=== PATIENT | male | born 1965 | race Caucasian/White ===

== ENCOUNTER 2017-09-05 12:19 | Emergency (ER) | payer BC ==
--- NOTE | 2017-09-05 14:00 | ER Document Report ---
ED Cardiac - General Mode of Arrival: Ambulatory Information source: Patient TRAVEL OUTSIDE OF THE [place] IN LAST 30 DAYS: Yes - Patrice <YARY RENAE - Last Filed: 09/05/17 14:07> <JENNIFER MENDOZA - Last Filed: 09/05/17 16:41> - General Chief Complaint: Palpitations Stated Complaint: HEART RATE ISSUES Time Seen by Provider: 09/05/17 13:25 Notes: Patient is a 52-year-old male who presents to the emergency department today with complaints of heart palpitations. Patient states that he began feeling these palpitations at about 2330 last evening. Patient has a history of atrial fibrillation. Patient mentions that he has a "link" in his chest and has a "pill in the pocket" approach with flecainide according to a note brought with him from his doctor. Patient denies any chest pain. (YARY RENAE) The patient has a loop monitor in his left chest wall that was seen on chest x- ray. The behavioral science chair for this was with the [facility], he is now changed to seeing a Dr. Mckeon with [facility]. (JENNIFER MENDOZA) - Related Data Allergies/Adverse Reactions: Penicillins Allergy (Verified 09/05/17 12:23) Past Medical History - General Information source: Patient - Social History Smoking Status: Never Smoker Cigarette use (# per day): No Frequency of alcohol use: None Drug Abuse: None Lives with: Family Family History: Reviewed & Not Pertinent - Past Medical History Cardiac Medical History: Reports: Hx Atrial Fibrillation, Hx Hypercholesterolemia GI Medical History: Reports: Hx Gastroesophageal Reflux Disease Past Surgical History: Reports: Hx Tonsillectomy <YARY RENAE - Last Filed: 09/05/17 14:07> Review of Systems - Review of Systems Constitutional: No symptoms reported EENT: No symptoms reported Cardiovascular: See HPI, Palpitations, Heart racing. denies: Chest pain Respiratory: No symptoms reported Gastrointestinal: No symptoms reported Genitourinary: No symptoms reported Male Genitourinary: No symptoms reported Musculoskeletal: No symptoms reported Skin: No symptoms reported Hematologic/Lymphatic: No symptoms reported Neurological/Psychological: No symptoms reported -: Yes All other systems reviewed and negative <YARY RENAE - Last Filed: 09/05/17 14:07> Physical Exam <YARY RENAE - Last Filed: 09/05/17 14:07> <JENNIFER MENDOZA - Last Filed: 09/05/17 16:41> - Vital signs Vitals: Temp Pulse Resp BP Pulse Ox 98.7 F 95 18 119/79 98 09/05/17 12:31 09/05/17 12:31 09/05/17 12:31 09/05/17 12:31 09/05/17 12:31 - Notes Notes: Physical Exam: General: Alert, appears well. HEENT: Normocephalic. Atraumatic. PERRL. Extraocular movements intact. Oropharynx clear. Neck: Supple. Non-tender. Respiratory: No respiratory distress. Clear and equal breath sounds bilaterally. Cardiovascular: Irregularly irregular, rate of 110-115. Abdominal: Normal Inspection. Non-tender. No distension. Normal Bowel Sounds. Back: Non-tender. No deformity or step off. Extremities: Moves all four extremities. Upper extremities: Normal inspection. Normal ROM. Lower extremities: Normal inspection. No edema. Normal ROM. Neurological: Normal cognition. AAOx4. Normal speech. Psychological: Normal affect. Normal Mood. Skin: Warm. Dry. Normal color. (YARY RENAE) Course - Laboratory Result Diagrams: 09/05/17 13:39 09/05/17 13:39 <YARY RENAE - Last Filed: 09/05/17 14:07> - Laboratory Result Diagrams: 09/05/17 13:39 09/05/17 13:39 - Diagnostic Test Radiology reviewed: Image reviewed, Reports reviewed - Chest x-ray does not show any acute process. It does show a loop recorder in the left anterior chest wall. - EKG Interpretation by [facility] EKG shows normal: Sinus rhythm, [place], Intervals, ST-T Waves. abnormal: QRS Complexes - Q's in leads III and F but not in lead II Rate: Tachycardia - 120 Rhythm: A.Fib - Consults Dr. Reveles Time consulted: 14:10 Consulted provider: other - Recommends giving 10 mg Cardizem IV, wait 30 minutes and give flecainide 50 mg and send him home on 50 mg twice daily. Given 1 dose of Lovenox based on weight, and start on aspirin. <JENNIFER MENODZA - Last Filed: 09/05/17 16:41> - Re-evaluation Re-evalutation: 09/05/17 16:36 After the Cardizem IV, the patient's ventricular rate slowed into the 60s. ( JENNIFER MENDOZA) - Vital Signs Vital signs: Temp Pulse Resp BP Pulse Ox 98.7 F 95 18 119/79 98 09/05/17 12:31 09/05/17 12:31 09/05/17 13:30 09/05/17 12:31 09/05/17 13:30 - Laboratory Laboratory results interpreted by me: 09/05/17 09/05/17 13:39 13:39 RBC 6.80 H MCV 73 L MCH 24.3 L Creatine Kinase 175 H Discharge <YARY RENAE - Last Filed: 09/05/17 14:07> <JENNIFER MENDOZA - Last Filed: 09/05/17 16:41> - Discharge Clinical Impression: Atrial fibrillation with rapid ventricular response Condition: Stable Disposition: HOME, SELF-CARE Additional Instructions: Take the flecainide as prescribed. Take one baby aspirin daily, you have had today's dose already. Follow-up with your behavioral science chair next week. RETURN TO THE EMERGENCY ROOM IF ANY NEW OR WORSENING SYMPTOMS. Prescriptions: Flecanide 50 mg PO BID #30 Referrals: ZAY GONZALEZ MD [Primary Care Provider] - Follow up as needed Scribe Attestation: 09/05/17 16:40 I personally performed the services described in the documentation, reviewed and edited the documentation which was dictated to the scribe in my presence, and it accurately records my words and actions. (JENNIFER MENDOZA) Scribe Documentation - Scribe Written by Merryibe:: Nayla Naylor, 09/05/2017 1411 acting as scribe for :: Hira <YARY RENAE - Last Filed: 09/05/17 14:07>
--- NOTE | 2017-09-05 14:02 | RADIOLOGY REPORT (SQ) ---
EXAM DESCRIPTION: CHEST SINGLE VIEW COMPLETED DATE/TIME: 09/05/2017 1:47 pm REASON FOR STUDY: palpitations COMPARISON: None. EXAM PARAMETERS: NUMBER OF VIEWS: One view. TECHNIQUE: Single frontal radiographic view of the chest acquired. RADIATION DOSE: NA LIMITATIONS: None. FINDINGS: LUNGS AND PLEURA: No opacities, masses or pneumothorax. No pleural effusion. MEDIASTINUM AND HILAR STRUCTURES: No masses. Contour normal. HEART AND VASCULAR STRUCTURES: Heart normal in size. Normal vasculature. BONES: No acute findings. HARDWARE: None in the chest. OTHER: No other significant finding. IMPRESSION: NO ACUTE RADIOGRAPHIC FINDING IN THE CHEST. TECHNICAL DOCUMENTATION: JOB ID: [id number] [employer]- All Rights Reserved
[2017-09-05 14:09] LABS: ABSOLUTE BASOPHILS # (AUTO) 0.1 10^3/uL (0.0-0.2); ABSOLUTE EOSINOPHILS # (AUTO) 0.2 10^3/uL (0.0-0.6); ABSOLUTE LYMPHOCYTES (AUTO) 2.2 10^3/uL (0.5-4.7); ABSOLUTE MONOCYTES (AUTO) 0.8 10^3/uL (0.1-1.4); BASOPHILS % (AUTO) 0.9 % (0-2); EOSINOPHILS % (AUTO) 1.8 % (0-6); HEMATOCRIT 49.5 % (37.9-51.0); HEMOGLOBIN 16.5 g/dL (13.5-17.0); LYMPHOCYTES % (AUTO) 23.8 % (13-45); MEAN CORPUSCULAR HEMOGLOBIN 24.3 pg (27.0-33.4); MEAN CORPUSCULAR HGB CONC 33.4 g/dL (32.0-36.0); MEAN CORPUSCULAR VOLUME 73 fl (80-97); MONOCYTES % (AUTO) 9.1 % (3-13); PLATELET COUNT 239 10^3/uL (150-450); SEGMENTED NEUTROPHILS % (AUTO) 64.4 % (42-78); TOTAL CELLS COUNTED % (AUTO) 100 %; WHITE BLOOD COUNT 9.3 10^3/uL (4.0-10.5)
[2017-09-05] MEDS ORDERED: NORMAL SALINE 1000 ML 1,000 ML IV ONE (14:10)
[2017-09-05] MEDS ORDERED: DILTIAZEM HCL INJ 25 MG/5 ML VIAL IV ONE (14:10)
[2017-09-05] MEDS ORDERED: ENOXAPARIN SODIUM INJ 100 MG/1 ML DISP.SYRIN SUBCUT ONE (14:15)
[2017-09-05] MEDS ORDERED: ASPIRIN 81 MG TABLET, CHEWABLE PO ONE (14:16)
[2017-09-05 14:29] LABS: ALANINE AMINOTRANSFERASE 48 U/L (21-72); ALBUMIN 4.3 g/dL (3.5-5.0); ALKALINE PHOSPHATASE 58 U/L (38-126); ANION GAP 12 (5-19); ASPARTATE AMINO TRANSFERASE 34 U/L (17-59); BILIRUBIN,DIRECT 0.3 mg/dL (0.0-0.4); BILIRUBIN,TOTAL 0.7 mg/dL (0.2-1.3); BLOOD UREA NITROGEN 16 mg/dL (7-20); CALCIUM 10.2 mg/dL (8.4-10.2); CARBON DIOXIDE 25 mmol/L (22-30); CHLORIDE 106 mmol/L (98-107); CREATINE KINASE 175 U/L (55-170); GLUCOSE 90 mg/dL (75-110); POTASSIUM 4.7 mmol/L (3.6-5.0); SODIUM 143.4 mmol/L (137-145); TOTAL PROTEIN 6.9 g/dL (6.3-8.2)
[2017-09-05 14:39] LABS: CREATINE KINASE MB 3.21 ng/mL (<4.55)
[2017-09-05 14:40] LABS: TROPONIN I < 0.012 ng/mL
[2017-09-05 14:45] LABS: FREE T3 3.96 pg/mL (2.77-5.27); FREE T4 (FREE THYROXINE) 1.03 ng/dL (0.78-2.19)
[2017-09-05 14:58] LABS: THYROID STIMULATING HORMONE 3.23 uIU/mL (0.47-4.68)
[2017-09-05] MEDS ORDERED: FLECAINIDE ACETATE 100 MG TABLET PO ONE (15:55)
[2017-09-05 16:58] VITALS: BP 118/96
--- NOTE | 2017-09-05 20:47 | EKG REPORT ---
SEVERITY:- ABNORMAL ECG - ATRIAL FIBRILLATION, V-RATE 59-94 PROBABLE INFERIOR INFARCT, AGE INDETERMINATE : Confirmed by: Parvez Connor MD 05-Sep-2017 20:47:02
--- NOTE | 2017-09-05 20:48 | EKG REPORT ---
SEVERITY:- ABNORMAL ECG - ATRIAL FIBRILLATION, V-RATE 79-169 PROBABLE INFERIOR INFARCT, OLD : Confirmed by: Parvez Connor MD 05-Sep-2017 20:47:44
--- NOTE | 2017-09-07 10:54 | EKG REPORT ---
SEVERITY:- ABNORMAL ECG - ATRIAL FIBRILLATION, V-RATE 49-70 PROBABLE INFERIOR INFARCT, AGE INDETERMINATE : Confirmed by: Rufina Reveles MD 07-Sep-2017 10:53:57
== END 2017-09-05 17:03 | disposition home or self-care (01) ==
LOC: ER 12:19
DX: I48.91 Unspecified atrial fibrillation (principal); R00.2 Palpitations; E78.00 Pure hypercholesterolemia, unspecified; Z88.0 Allergy status to penicillin
CPT/HCPCS: 93005; 99285; 96372; 96361; 96374; 36415; 84439; 82553; 82550; 84443; 85025; 80053; 84484; 84481; 71010; 93010; J3490 ×2; J7030; J1650

== ENCOUNTER → 2018-01-13 | Outpatient (CLI) | payer BC ==
--- NOTE | 2018-01-13 10:09 | WOMENS IMAGING REPORT ---
EXAM DESCRIPTION: BILAT DIAGNOSTIC MAMMO W/CAD; U/S BREAST UNILAT LIMITED COMPLETED DATE/TIME: 01/13/2018 8:45 am; 01/13/2018 9:44 am REASON FOR STUDY: AXILLARY MASS/SUBCUTANEOUS CALC; LEFT BREAST; L94.2 R22.30 LOCALIZED SWELLING, MA SS AND LUMP, UNSPECIFIED UPPER R59.0 LOCALIZED ENLARGED LYMPH NODES COMPARISON: None. TECHNIQUE: Standard craniocaudal,90 mediolateral and mediolateral oblique views of each breast dameon rded using digital acquisition. Left male breast ultrasound was also performed LIMITATIONS: None. FINDINGS: RIGHT BREAST MASSES: No suspicious masses. CALCIFICATIONS: No new or suspicious calcifications. ARCHITECTURAL DISTORTION: None. DEVELOPING DENSITY: None. ASYMMETRY: None noted. OTHER: No other significant findings. LEFT BREAST MASSES: No suspicious masses. CALCIFICATIONS: No new or suspicious calcifications. ARCHITECTURAL DISTORTION: None. DEVELOPING DENSITY: None. ASYMMETRY: None noted. OTHER: An implanted cardiac monitoring device is present over the lower inner quadrant left male daryl st Read with the assistance of CAD: .[facility] - R2 Cenova Version 1.3 .[facility] - R2 Cenova Version 1.3 .[facility] - R2 Cenova Version 2.4 .[facility] [place] R2 Cenova Version 2.4 .[facility] - R2 Marketing Writer Version 9.2 Left male breast ultrasound: Benign 9 mm intramammary lymph node left breast 1 to 2 o'clock position, 4 cm from the nipple IMPRESSION: No mammographic evidence for malignancy right male breast. No mammographic or sonographic evidence for malignancy left male breast BREAST DENSITY: a. The breasts are almost entirely fatty. BIRAD: 1 Negative. RECOMMENDATION: RECOMMENDED FOLLOW UP: Clinical follow-up recommended SPECIFIC INTERVENTION/IMAGING/CONSULTATION RECOMMENDED:No additional intervention/ imaging/consultati on needed at this time. COMMUNICATION:The negative/benign results were communicated to the patient. COMMENT: The patient has been notified of the results by letter per SA requirements. Additional no tification policies are in place for contacting patient with suspicious or incomplete findings. Quality ID #225: The [employer] recommends an annual screening mammogram for women aged 40 years or over. This facility utilizes a reminder system to ensure that all patients receive reminder letters, and/or direct phone calls for appointments. This includes reminders for routine scr eening mammograms, diagnostic mammograms, or other Breast Imaging Interventions when appropriate. Th is patient will be placed in the appropriate reminder system. The [employer] (ACR) has developed recommendations for screening MRI of the breast s in certain patient populations, to be used in conjunction with mammography. Breast MRI surveillanc e may be appropriate for women with more than 20% lifetime risk of developing breast cancer as deter mined by genetic testing, significant family history of the disease, or history of mantle radiation f or Hodgkins Disease. ACR Practice Guidelines 2008. TECHNICAL DOCUMENTATION: FINDING NUMBER: (1) ASSESSMENT: (1) JOB ID: [id number] [employer]- All Rights Reserved Reading location - IP/workstation name: [email or web address]
--- NOTE | 2018-01-13 10:09 | WOMENS IMAGING REPORT ---
EXAM DESCRIPTION: BILAT DIAGNOSTIC MAMMO W/CAD; U/S BREAST UNILAT LIMITED COMPLETED DATE/TIME: 01/13/2018 8:45 am; 01/13/2018 9:44 am REASON FOR STUDY: AXILLARY MASS/SUBCUTANEOUS CALC; LEFT BREAST; L94.2 R22.30 LOCALIZED SWELLING, MA SS AND LUMP, UNSPECIFIED UPPER R59.0 LOCALIZED ENLARGED LYMPH NODES COMPARISON: None. TECHNIQUE: Standard craniocaudal,90 mediolateral and mediolateral oblique views of each breast dameon rded using digital acquisition. Left male breast ultrasound was also performed LIMITATIONS: None. FINDINGS: RIGHT BREAST MASSES: No suspicious masses. CALCIFICATIONS: No new or suspicious calcifications. ARCHITECTURAL DISTORTION: None. DEVELOPING DENSITY: None. ASYMMETRY: None noted. OTHER: No other significant findings. LEFT BREAST MASSES: No suspicious masses. CALCIFICATIONS: No new or suspicious calcifications. ARCHITECTURAL DISTORTION: None. DEVELOPING DENSITY: None. ASYMMETRY: None noted. OTHER: An implanted cardiac monitoring device is present over the lower inner quadrant left male daryl st Read with the assistance of CAD: .[facility] - R2 Cenova Version 1.3 .[facility] - R2 Cenova Version 1.3 .[facility] - R2 Cenova Version 2.4 .[facility] [place] - R2 Cenova Version 2.4 .[facility]EDS AT [facility] - R2 Water Truck Driver Version 9.2 Left male breast ultrasound: Benign 9 mm intramammary lymph node left breast 1 to 2 o'clock position, 4 cm from the nipple IMPRESSION: No mammographic evidence for malignancy right male breast. No mammographic or sonographic evidence for malignancy left male breast BREAST DENSITY: a. The breasts are almost entirely fatty. BIRAD: 1 Negative. RECOMMENDATION: RECOMMENDED FOLLOW UP: Clinical follow-up recommended SPECIFIC INTERVENTION/IMAGING/CONSULTATION RECOMMENDED:No additional intervention/ imaging/consultati on needed at this time. COMMUNICATION:The negative/benign results were communicated to the patient. COMMENT: The patient has been notified of the results by letter per SA requirements. Additional no tification policies are in place for contacting patient with suspicious or incomplete findings. Quality ID #225: The [employer] [employer] recommends an annual screening mammogram for women aged 40 years or over. This facility utilizes a reminder system to ensure that all patients receive reminder letters, and/or direct phone calls for appointments. This includes reminders for routine scr eening mammograms, diagnostic mammograms, or other Breast Imaging Interventions when appropriate. Th is patient will be placed in the appropriate reminder system. The [place] [employer] (ACR) has developed recommendations for screening MRI of the breast s in certain patient populations, to be used in conjunction with mammography. Breast MRI surveillanc e may be appropriate for women with more than 20% lifetime risk of developing breast cancer as deter mined by genetic testing, significant family history of the disease, or history of mantle radiation f or Hodgkins Disease. ACR Practice Guidelines 2008. TECHNICAL DOCUMENTATION: FINDING NUMBER: (1) ASSESSMENT: (1) JOB ID: [id number] [employer]- All Rights Reserved Reading location - IP/workstation name: [facility]-[email or web address]
== END ==
LOC: WI 08:06
PROVIDERS: ATTEND Physician Assistant
DX: R59.0 Localized enlarged lymph nodes (principal); L94.2 Calcinosis cutis
CPT/HCPCS: 76642; 77066

== ENCOUNTER 2019-06-30 19:20 | Emergency (ER) | payer BC ==
[2019-06-30 19:53] VITALS: BP 121/74
[2019-06-30] MEDS ORDERED: ASPIRIN 81 MG TABLET, CHEWABLE PO ONE (20:29)
--- NOTE | 2019-06-30 20:29 | ER Document Report ---
ED Medical Screen (RME) - General Chief Complaint: Palpitations Stated Complaint: REPORTS HEART PALPITATIONS Time Seen by Provider: 06/30/19 20:27 Primary Care Provider: ZAY GONZALEZ MD [Primary Care Provider] - Follow up as needed Mode of Arrival: Ambulatory Information source: Patient Notes: 54-year-old male presented to ED for complaint of palpitations. He states he has a little chest discomfort but not really pain. States he has a history of A. fib and felt himself going into A. fib about 5:00 tonight. He is on flecainide, metoprolol, and 81 mg of aspirin. States that last time he has been in A. fib was September 05, 2017. Patient denies any shortness of breath or diaphoresis. He states he has been fatigued. Patient denies smoking drinking or using any illicit drugs. TRAVEL OUTSIDE OF THE [place] IN LAST 30 DAYS: No - Related Data Allergies/Adverse Reactions: Penicillins Allergy (Verified 09/05/17 12:23) Home Medications: metoprolol. flecinal Past Medical History - Social History Frequency of alcohol use: None Drug Abuse: None - Past Medical History Cardiac Medical History: Reports: Hx Atrial Fibrillation, Hx Hypercholesterolemia Renal/ Medical History: Denies: Hx Peritoneal Dialysis GI Medical History: Reports: Hx Gastroesophageal Reflux Disease Past Surgical History: Reports: Hx Tonsillectomy Physical Exam - Vital signs Vitals: Temp Pulse Resp BP Pulse Ox 98.3 F 98 18 121/74 94 06/30/19 19:48 06/30/19 19:48 06/30/19 19:48 06/30/19 19:48 06/30/19 19:48 Course - Vital Signs Vital signs: Temp Pulse Resp BP Pulse Ox 98.3 F 98 18 121/74 94 06/30/19 19:48 06/30/19 19:48 06/30/19 19:48 06/30/19 19:48 06/30/19 19:48 Doctor's Discharge - Discharge Referrals: ZAY GONZALEZ MD [Primary Care Provider] - Follow up as needed
[2019-06-30 21:00] LABS: ABSOLUTE BASOPHILS # (AUTO) 0.1 10^3/uL (0.0-0.2); ABSOLUTE EOSINOPHILS # (AUTO) 0.1 10^3/uL (0.0-0.6); ABSOLUTE LYMPHOCYTES (AUTO) 2.4 10^3/uL (0.5-4.7); ABSOLUTE MONOCYTES (AUTO) 1.2 10^3/uL (0.1-1.4); BASOPHILS % (AUTO) 0.6 % (0-2); EOSINOPHILS % (AUTO) 0.7 % (0-6); HEMATOCRIT 47.3 % (37.9-51.0); HEMOGLOBIN 15.4 g/dL (13.5-17.0); LYMPHOCYTES % (AUTO) 17.5 % (13-45); MEAN CORPUSCULAR HEMOGLOBIN 23.9 pg (27.0-33.4); MEAN CORPUSCULAR HGB CONC 32.5 g/dL (32.0-36.0); MEAN CORPUSCULAR VOLUME 74 fl (80-97); PLATELET COUNT 243 10^3/uL (150-450); RED BLOOD COUNT 6.42 10^6/uL (4.35-5.55); SEGMENTED NEUTROPHILS % (AUTO) 72.2 % (42-78); TOTAL CELLS COUNTED % (AUTO) 100 %; WHITE BLOOD COUNT 13.8 10^3/uL (4.0-10.5)
[2019-06-30 21:11] LABS: INTERNATIONAL RATION (INR) 1.04; PROTHROMBIN TIME 13.6 SEC (11.4-15.4)
[2019-06-30 21:12] LABS: PARTIAL THROMBOPLASTIN TIME 27.5 SEC (23.5-35.8)
[2019-06-30 21:13] LABS: ALBUMIN 4.4 g/dL (3.5-5.0); ALKALINE PHOSPHATASE 58 U/L (38-126); ANION GAP 9 (5-19); ASPARTATE AMINO TRANSFERASE 49 U/L (17-59); BILIRUBIN,DIRECT 0.1 mg/dL (0.0-0.4); BILIRUBIN,TOTAL 0.8 mg/dL (0.2-1.3); BLOOD UREA NITROGEN 28 mg/dL (7-20); CALCIUM 10.1 mg/dL (8.4-10.2); CARBON DIOXIDE 29 mmol/L (22-30); CHLORIDE 103 mmol/L (98-107); CREATINE KINASE 776 U/L (55-170); GLUCOSE 78 mg/dL (75-110); POTASSIUM 4.1 mmol/L (3.6-5.0); TOTAL PROTEIN 7.3 g/dL (6.3-8.2)
--- NOTE | 2019-06-30 21:19 | RADIOLOGY REPORT (SQ) ---
EXAM DESCRIPTION: RadLex: XR CHEST 2 VIEWS Views: 2 CLINICAL HISTORY: 54 years Male, chest pain COMPARISON: None. FINDINGS: The lungs are clear. No pneumothorax or significant pleural effusion. Cardiomediastinal silhouette is within normal limits. Cardiac loop recorder is noted. Bony structures are unremarkable for age. IMPRESSION: 1. No acute cardiothoracic abnormality.
[2019-06-30 21:24] LABS: CREATINE KINASE MB 8.33 ng/mL (<4.55); TROPONIN I 0.032 ng/mL
--- NOTE | 2019-07-02 00:22 | EKG REPORT ---
SEVERITY:- ABNORMAL ECG - ATRIAL FIBRILLATION : Confirmed by: Bart Latham 02-Jul-2019 00:21:13
== END 2019-07-01 00:55 | disposition left against medical advice (07) ==
LOC: ER 19:20
DX: R00.2 Palpitations (principal); R53.83 Other fatigue; I48.91 Unspecified atrial fibrillation; Z79.899 Other long term (current) drug therapy; Z79.82 Long term (current) use of aspirin; Z88.0 Allergy status to penicillin; Z53.20 Procedure and treatment not carried out because of patient's decision for unspecified reasons
CPT/HCPCS: 36415; 71046; 80053; 82550; 82553; 83735; 83880; 84443; 84484; 85025; 85610; 85730; 93005; 93010; 99281

== ENCOUNTER 2019-07-26 08:56 | Day surgery (SDC) | payer BC ==
[~2019-07-26 08:56] MED LIST: KETOROLAC TROMETHAMINE 0.45% 4 DROP/0.4 ML DROPERETTE OS PRN
[2019-07-26] MEDS ORDERED: MIDAZOLAM 2 MG/2 ML INJ ONE (09:08)
[2019-07-26] MEDS ORDERED: ONDANSETRON HCL INJ/PF 4 MG/2 ML SDV ONE (09:08)
[2019-07-26] MEDS ORDERED: FENTANYL CITRATE INJ/PF 100 MCG/2 ML AMPUL ONE (09:09)
[2019-07-26] MEDS: TROPICAMIDE 1% OPH SOLN 15 ML OS PRN ×3 (09:31→09:50)
[2019-07-26] MEDS: TETRACAINE HCL 0.5% OPH SOLN 4 ML OS PRN ×3 (09:31→10:10)
[2019-07-26] MEDS: CYCLOPENTOLATE 0.2%/PHENYLEPHRINE 1% OPH SOLN 2 ML OS PRN ×3 (09:32→09:50)
[2019-07-26] MEDS: BESIFLOXACIN HCL 0.6% OPH SUSP 5 ML BOTTLE OS PRN ×4 (09:32→10:33)
[2019-07-26] MEDS: LIDOCAINE 1% INJ-PF (10 MG/ML) 30 ML SDV ONE ×2 (10:23)
[2019-07-26] MEDS: EPINEPHRINE INJ/PF 1 MG/1 ML AMPULE ONE ×2 (10:23)
[2019-07-26] MEDS: CHONDR SU A NA/HYALUR INTRAOC KIT (SURGICARE) ONE ×2 (10:23)
[2019-07-26] MEDS: DORZOLAMIDE HCL 2%/TIMOLOL MALEAT 0.5% OPH SOLN 10 ML OS PRN ×2 (10:33)
[2019-07-26] MEDS: TOBRAMYCIN SULFATE/DEXAMETH OPH OINTMENT 3.5 GM ONE ×2 (10:33)
== END 2019-07-26 11:12 | disposition home or self-care (01) ==
LOC: SC 08:56
PROVIDERS: ATTEND Ophthalmology
DX: H25.12 Age-related nuclear cataract, left eye (principal); I10 Essential (primary) hypertension; E78.00 Pure hypercholesterolemia, unspecified; Z79.82 Long term (current) use of aspirin; I48.91 Unspecified atrial fibrillation
CPT/HCPCS: 66984; 00142; J2250; J3490 ×4; J0171; J3010; J2405; 142

== ENCOUNTER → 2019-10-16 | Day surgery (SDC) | payer BC ==
--- NOTE | 2019-10-16 13:51 | RADIOLOGY REPORT (SQ) ---
EXAM DESCRIPTION: ARTHRO SHOULDER INJECTION; FLUORO/NEEDLE PLACEMENT COMPLETED DATE/TIME: 10/16/2019 1:20 pm REASON FOR STUDY: M25.512 PAIN IN LEFT SHOULDER M25.512 PAIN IN LEFT SHOULDER COMPARISON: None. FLUOROSCOPY TIME: 12 seconds of fluoroscopy was used. 1 images saved to PACS. LIMITATIONS: None. PROCEDURE: Procedure, risks, benefits and alternatives explained to patient who then gave written co nsent. The left shoulder was marked and a time out was called for correct procedure verification. Po sterior entry site marked using fluoroscopic guidance. Shoulder prepped and draped using sterile sharad hnique. Local anesthesia achieved using 5 mL 1% lidocaine injection. Hypodermic needle introduced i nto the joint space under direct fluoroscopic visualization. 1 mL Omnipaque 300 instilled to confirm intra-articular position. Dilute gadolinium solution then injected. Needle removed and entry site c overed with sterile bandage. No immediate complications noted. TECHNIQUE: Digital images acquired during fluoroscopy and stored on PACS. Patient immediately take n to the MR suite for additional imaging. INJECTION LOCATION: Posterior left shoulder. CONTRAST TYPE AND AMOUNT: 12 mL Dotarem/Saline mixture. IMPRESSION: SUCCESSFUL NEEDLE PLACEMENT AND INJECTION FOR LEFT SHOULDER MR ARTHROGRAM USING POSTERIO R APPROACH. COMMENT: Quality ID 145: Final reports for procedures using fluoroscopy that document radiation exp osure indices, or exposure time and number of fluorographic images (if radiation exposure indices are not available) TECHNICAL DOCUMENTATION: JOB ID: [id number] [employer]- All Rights Reserved Reading location - IP/workstation name: [email or web address] [id number]
--- NOTE | 2019-10-16 13:51 | RADIOLOGY REPORT (SQ) ---
EXAM DESCRIPTION: ARTHRO SHOULDER INJECTION; FLUORO/NEEDLE PLACEMENT COMPLETED DATE/TIME: 10/16/2019 1:20 pm REASON FOR STUDY: M25.512 PAIN IN LEFT SHOULDER M25.512 PAIN IN LEFT SHOULDER COMPARISON: None. FLUOROSCOPY TIME: 12 seconds of fluoroscopy was used. 1 images saved to PACS. LIMITATIONS: None. PROCEDURE: Procedure, risks, benefits and alternatives explained to patient who then gave written co nsent. The left shoulder was marked and a time out was called for correct procedure verification. Po sterior entry site marked using fluoroscopic guidance. Shoulder prepped and draped using sterile sharad hnique. Local anesthesia achieved using 5 mL 1% lidocaine injection. Hypodermic needle introduced i nto the joint space under direct fluoroscopic visualization. 1 mL Omnipaque 300 instilled to confirm intra-articular position. Dilute gadolinium solution then injected. Needle removed and entry site c overed with sterile bandage. No immediate complications noted. TECHNIQUE: Digital images acquired during fluoroscopy and stored on PACS. Patient immediately take n to the MR suite for additional imaging. INJECTION LOCATION: Posterior left shoulder. CONTRAST TYPE AND AMOUNT: 12 mL Dotarem/Saline mixture. IMPRESSION: SUCCESSFUL NEEDLE PLACEMENT AND INJECTION FOR LEFT SHOULDER MR ARTHROGRAM USING POSTERIO R APPROACH. COMMENT: Quality ID 145: Final reports for procedures using fluoroscopy that document radiation exp osure indices, or exposure time and number of fluorographic images (if radiation exposure indices are not available) TECHNICAL DOCUMENTATION: JOB ID: [id number] [employer]- All Rights Reserved Reading location - IP/workstation name: [email or web address] [id number]
--- NOTE | 2019-10-16 15:00 | RADIOLOGY REPORT (SQ) ---
EXAM DESCRIPTION: MRI LT UPPER JOINT WITH COMPLETED DATE/TIME: 10/16/2019 1:42 pm REASON FOR STUDY: M25.512 PAIN IN LEFT SHOULDER M25.512 PAIN IN LEFT SHOULDER COMPARISON: None. TECHNIQUE: Left shoulder images acquired and stored on PACS. Oblique coronal, oblique sagittal, and axial imaging to include fat sensitive sequences as T1, water sensitive sequences as FST2/STIR, and c ontrast sensitive sequences as FST1. LIMITATIONS: None. FINDINGS: JOINT DISTENTION: Adequate. No loose bodies. BONE MARROW AND CORTEX: No fracture or bone lesion. AC JOINT: Mild hypertrophic overgrowth. Marrow edema in the distal clavicle with subchondral cysts. No AC joint widening. Subacromial spaces relatively preserved although the acromion shows evidence of minimal spurring and down slope. GLENOHUMERAL JOINT: No focal chondral lesions. ROTATOR CUFF: No significant cuff tear. No fatty atrophy. LABRUM AND BICEPS LABRAL COMPLEX: Mild fraying superior labrum and anchor. Biceps tendon intact. INFERIOR LABRAL COMPLEX: No displaced labral tear. ADJACENT SOFT TISSUES: No regional mass or axillary adenopathy. OTHER: No other significant finding. IMPRESSION: 1. AC arthropathy with potential early distal clavicular osteolysis. 2. No significant cuff tear. 3. Mild superior labral changes as described, suspect low grade fraying. Biceps tendon intact. TECHNICAL DOCUMENTATION: JOB ID: [id number] [email or web address]- All Rights Reserved Reading location - IP/workstation name: [email or web address]
== END ==
LOC: RAD 12:14
PROVIDERS: ATTEND Orthopaedic Surgery Sports Medicine
DX: M25.512 Pain in left shoulder (principal)
CPT/HCPCS: 73222; 77002; 23350; A9576